=== PATIENT | male | born 1980 | race Caucasian/White ===

== ENCOUNTER 2020-07-09 23:08 | Emergency (ER) | payer SELFPAY ==
[~2020-07-09] VITALS: Ht 170.2 cm; Wt 81.2 kg
[2020-07-09 23:40] VITALS: BP 124/89; Ht 170.2 cm; Wt 81.2 kg
== END 2020-07-10 02:58 | disposition home or self-care (01) ==
LOC: ED 23:08
DX: S20.211A Contusion of right front wall of thorax, initial encounter (principal); W22.8XXA Striking against or struck by other objects, initial encounter; Y93.89 Activity, other specified; Y92.89 Other specified places as the place of occurrence of the external cause; Y99.8 Other external cause status